=== PATIENT | female | born 1965 | race African-American/Black ===

== ENCOUNTER 2016-08-27 11:14 | Emergency (ER) | payer OTHER ==
[2016-08-27 11:32] VITALS: BP 119/67; PULSE 79; TEMP 98.3; BMI 26.2
[2016-08-27] MEDS ORDERED: CEPHALEXIN MONOHYDRATE 500 MG CAPSULE (UD) PO ONE (12:16)
[2016-08-27] MEDS ORDERED: SULFAMETHOXAZOLE/TRIMETHOPRIM 800MG/160MG D.S. TABLET PO ONE (12:16)
[2016-08-27] MEDS ORDERED: CEPHALEXIN MONOHYDRATE 500 MG CAPSULE (UD) ONE (12:22)
[2016-08-27] MEDS ORDERED: SULFAMETHOXAZOLE/TRIMETHOPRIM 800MG/160MG D.S. TABLET ONE (12:22)
--- NOTE | 2016-08-27 12:23 | PDOC ---
History of Present Illness - General Chief Complaint: Pain Stated Complaint: SWOLLEN THUMB Time Seen by Provider: 08/27/16 11:48 History Source: Patient Exam Limitations: No Limitations - History of Present Illness Initial Comments: 08/27/16 12:28 My chief complaint: Tenderness around the nailbed right thumb getting worse History of present illness: Patient is a 50-year-old female with no significant medical history here today complaining of worsening tenderness and pain around right thumb nailbed over 1 week. Patient reports that a few days ago she had some white thick discharge this area. Patient reports that she thought that condition was going to resolve on its own however swelling and tenderness of area has gotten worse and area is slightly hyperpigmented. Patient denies any nail biting or any recent manicure. Pt. is up to date with tetanus. 08/27/16 12:31 08/27/16 12:53 Timing/Duration: getting worse (for one week ) Severity: moderate Associated Symptoms: reports: other (raised tender area around nailbed laterally rt. thumb ) Past History - Past Medical History Allergies/Adverse Reactions: Allergies Allergy/AdvReac Type Severity Reaction Status Date / Time No Known Allergies Allergy Verified 08/27/16 11:29 Home Medications: Ambulatory Orders Cephalexin Monohydrate [Keflex -] 500 mg PO Q6H #27 capsule 08/27/16 Sulfamethoxazole/Trimethoprim [Bactrim DS -] 1 tab PO BID #13 tablet 08/27/16 Other medical history: NONE - Psycho/Social/Smoking Cessation Hx Anxiety: No Suicidal Ideation: No Smoking History: Never smoked Have you smoked in the past 12 months: Yes Number of Cigarettes Smoked Daily: 5 Information on smoking cessation initiated: Yes Hx Alcohol Use: No Drug/Substance Use Hx: No Substance Use Type: None Review of Systems - Review of Systems Able to Perform ROS?: Yes Constitutional: No: Symptoms Reported HEENTM: No: Symptoms Reported Respiratory: No: Symptoms reported Cardiac (ROS): No: Symptoms Reported ABD/GI: No: Symptoms Reported : No: Symptoms Reported Musculoskeletal: No: Symptoms Reported Integumentary: Yes: Other (raised tender area around rt. lateral thumb nailbed slightly hyperpigmented) Neurological: No: Symptoms reported *Physical Exam - Vital Signs Last Vital Signs Temp Pulse Resp BP Pulse Ox 98.3 F 79 18 119/67 100 08/27/16 11:30 02/27/17 11:30 08/27/16 11:30 08/27/16 11:30 08/27/16 11:30 - Physical Exam Extremity: positive: Normal Capillary Refill, Normal Range of Motion (rt. thumb dip, mcp jt ), Tender (rt,thumb around nailbed ), Swelling (rt. thumb around nailbed ) Integumentary: positive: Erythema (rt. thumb around nailbed tender ), Swelling ( rt. thumb around nailbed ) Neurologic: positive: Alert, Normal Response, Responsive Procedures - Additional Procedures Progress: 08/27/16 12:53 cleansed area with betadine and NS 0.9 % using an 18 gauge needle large amount of thick yellowish discharge Medical Decision Making - Medical Decision Making 08/27/16 12:33 Patient is a 50-year-old female with no significant medical history here today complaining of worsening tenderness and pain around right thumb nailbed over 1 week. Patient reports that a few days ago she had some white thick discharge this area. Patient reports that she thought that condition was going to resolve on its own however swelling and tenderness of area has gotten worse and area is slightly hyperpigmented. Patient denies any nail biting or any recent manicure. Pt. is up to date with tetanus. right thumb paronychium PLAN: Keflex 500 mg po now than every 6 hours for 7 days bactrim DS 1 tab po now than bid for 7 days cleansed area with betadine and NS 0.9 % using an 18 gauge needle large amount of thick yellowish discharge *DC/Admit/Observation/Transfer Diagnosis at time of Disposition: Paronychia of finger of right hand - Discharge Dispostion Disposition: HOME Condition at time of disposition: Stable - Prescriptions Prescriptions: Sulfamethoxazole/Trimethoprim [Bactrim DS -] 1 tab PO BID #13 tablet Cephalexin Monohydrate [Keflex -] 500 mg PO Q6H #27 capsule - Referrals Referrals: Keo Silver MD [Primary Care Provider] - - Patient Instructions Additional Instructions: Soak your thumb in warm salt water every 3 hours while awake today and tomorrow Return here if any increased inflammation of your thumb or swelling or any fever or any streaking of red up your thumb or arm Follow-up with your primary care provider within the next few days Patient voiced understanding of discharge instructions and all questions were answered - Post Discharge Activity Work/School Note: Back to Work
== END 2016-08-27 12:35 | disposition home or self-care (01) ==
LOC: JERFT 11:14
PROC: 0H9FXZZ Drainage of Right Hand Skin, External Approach (ICD-10-PCS; principal; 2016-08-27)
DX: L03.011 Cellulitis of right finger (principal)
CPT/HCPCS: 10160; 87070; 87205; 99281-25

== ENCOUNTER 2020-01-24 17:33 | Emergency (ER) | payer BC, OTHER ==
[2020-01-24] MEDS ORDERED: DIPHTH,PERTUSS(ACELL),TET 0.5 ML DISP.SYRIN IM ONE ×2 (17:44→17:53)
[2020-01-24 17:45] VITALS: BP 121/82; PULSE 81; TEMP 98.4; BMI 27.2
--- NOTE | 2020-01-24 17:45 | PDOC ---
Rapid Medical Evaluation Chief Complaint: Laceration Time Seen by Provider: 01/24/20 17:43 Medical Evaluation: Allergies Allergy/AdvReac Type Severity Reaction Status Date / Time No Known Allergies Allergy Verified 08/27/16 11:29 01/24/20 17:43 Pt presents with a laceration to her R 2nd digit. She cut it on a plate. Does not remember her last tetanus shot Exam: bleeding to the R 2nd digit. Dressing in place, able to flex the finger Orders: boostrix Pt to proceed to the ER for further evaluation Discharge Disposition - Diagnosis Laceration - Referrals Referrals: Keo Silver MD [Primary Care Provider] - - Patient Instructions - Post Discharge Activity
--- NOTE | 2020-01-24 18:20 | PDOC ---
History of Present Illness - General Chief Complaint: Laceration Stated Complaint: LACERATION ON FINGER Time Seen by Provider: 01/24/20 17:43 History Source: Patient Exam Limitations: No Limitations - History of Present Illness Initial Comments: 01/24/20 18:16 54-year-old female [id number] sustained laceration to right index finger 2 to 3 hours prior to arrival. Patient states a plate broke and accidentally lacerated her index finger. Patient called EMS who cleaned the area however declined presenting to the ER via EMS. son drove her to the hospital. Denies any other injuries or complaints. Unknown tetanus status. ROS: As above PE: GENERAL: well-appearing, NAD HEAD: NCAT EYES: Pupils equal, round and reactive to light, sclera anicteric, conjunctiva clear ENT: pharynx: no erythema, no exudate, uvula midline NECK: supple CHEST: nontender RESP: clear, no w/r/r CARDIO: rrr, no m/g/r ABD: +BS, soft, nontender, non distended BACK: no midline spinal ttp, no CVAT EXTREMITIES: Normal range of motion, 5/5 strength and sensation, approximately 3.5 cm superficial wound to dorsum of right index finger between MCP and PIP, no active bleeding noted NEUROLOGICAL: Normal speech, normal gait SKIN: Warm, Dry Is this a multiple visit Asthma Patient?: No Past History - Medical History Allergies/Adverse Reactions: Allergies Allergy/AdvReac Type Severity Reaction Status Date / Time No Known Allergies Allergy Verified 01/24/20 17:45 Home Medications: Ambulatory Orders Cephalexin Monohydrate [Keflex -] 500 mg PO Q6H #27 capsule 08/27/16 Sulfamethoxazole/Trimethoprim [Bactrim DS -] 1 tab PO BID #13 tablet 08/27/16 COPD: No - Immunization History Td Vaccination: No TDAP Vaccination: No Immunization Up to Date: No - Psycho-Social/Smoking History Smoking History: Never smoked Have you smoked in the past 12 months: Yes Number of Cigarettes Smoked Daily: 5 - Substance Abuse Hx (Audit-C & DAST Scrn) How often the patient has a drink containing alcohol: Never Score: In Men: 4 or > Positive; In Women: 3 or > Positive: 0 Screen Result (Pos requires Nsg. Audit-10AR): Negative *Physical Exam - Vital Signs Last Vital Signs Temp Pulse Resp BP Pulse Ox 98.4 F 81 18 121/82 98 01/24/20 17:42 01/24/20 17:42 01/24/20 17:42 01/24/20 17:42 01/24/20 17:42 ED Treatment Course - Medications Given in the ED: ED Medications Discontinued Medications Generic Name Dose Route Start Last Admin Trade Name Suleiman PRN Reason Stop Dose Admin Diphtheria/Tetanus/Acell Pertussis 0.5 ml 01/24/20 17:44 01/24/20 17:53 Boostrix - IM 01/24/20 17:45 0.5 ml .ONCE ONE Administration Medical Decision Making - Medical Decision Making 01/24/20 18:20 54-year-old female [id number] sustained laceration to right index finger 2 to 3 hours prior to arrival. Patient states a plate broke and accidentally lacerated her index finger. Patient called EMS who cleaned the area however declined presenting to the ER via EMS. son drove her to the hospital. Denies any other injuries or complaints. Unknown tetanus status. Tetanus Laceration repaired by resident Jed oRsa Return to ED for suture removal in 7 days Return to ED if you develop fever, chills, swelling or drainage from wound Discharge - Discharge Information Problems reviewed: Yes Clinical Impression/Diagnosis: Laceration Condition: Stable Disposition: HOME - Admission No - Follow up/Referral Referrals: Keo Silver MD [Primary Care Provider] - - Patient Discharge Instructions Additional Instructions: Keep area clean and dry, apply bacitracin to area twice a day Return to the ED in 7 days for suture removal Return to ED sooner if you develop fever, chills, drainage from wound, swelling or any concerning symptom - Post Discharge Activity
--- NOTE | 2020-01-24 19:12 | PDOC ---
History of Present Illness - General Chief Complaint: Laceration Stated Complaint: LACERATION ON FINGER Time Seen by Provider: 01/24/20 17:43 Past History - Medical History Allergies/Adverse Reactions: Allergies Allergy/AdvReac Type Severity Reaction Status Date / Time No Known Allergies Allergy Verified 01/24/20 17:45 Home Medications: Ambulatory Orders Cephalexin Monohydrate [Keflex -] 500 mg PO Q6H #27 capsule 08/27/16 Sulfamethoxazole/Trimethoprim [Bactrim DS -] 1 tab PO BID #13 tablet 08/27/16 COPD: No - Immunization History Td Vaccination: No TDAP Vaccination: No Immunization Up to Date: No - Psycho-Social/Smoking History Smoking History: Never smoked Have you smoked in the past 12 months: Yes Number of Cigarettes Smoked Daily: 5 - Substance Abuse Hx (Audit-C & DAST Scrn) How often the patient has a drink containing alcohol: Never Score: In Men: 4 or > Positive; In Women: 3 or > Positive: 0 Screen Result (Pos requires Nsg. Audit-10AR): Negative *Physical Exam - Vital Signs Last Vital Signs Temp Pulse Resp BP Pulse Ox 98.4 F 81 18 121/82 98 01/24/20 17:42 01/24/20 17:42 01/24/20 17:42 01/24/20 17:42 01/24/20 17:42 Procedures - Laceration/Wound Repair Right Finger 2nd digit Wound Length: 2.6 to 5.0 cm Wound Explored: clean Wound's Depth, Shape: superficial Irrigated w/ Saline: Yes Betadine Prep: No Anesthesia: 1% Lidocaine Amount of Anesthetic (ccs): 4 (digital block) Wound Repaired With: Sutures Suture Size/Type: 4:0, nylon Number of Sutures: 8 Layer Closure: No Sterile Dressing Applied: Yes Splint Applied: No Sling Applied: No ED Treatment Course - Medications Given in the ED: ED Medications Discontinued Medications Generic Name Dose Route Start Last Admin Trade Name Freq PRN Reason Stop Dose Admin Diphtheria/Tetanus/Acell Pertussis 0.5 ml 01/24/20 17:44 01/24/20 17:53 Boostrix - IM 01/24/20 17:45 0.5 ml .ONCE ONE Administration Discharge - Discharge Information Problems reviewed: Yes Clinical Impression/Diagnosis: Laceration Condition: Stable Disposition: HOME - Follow up/Referral Referrals: Keo Silver MD [Primary Care Provider] - - Patient Discharge Instructions Additional Instructions: Keep area clean and dry, apply bacitracin to area twice a day Return to the ED in 7 days for suture removal Return to ED sooner if you develop fever, chills, drainage from wound, swelling or any concerning symptom - Post Discharge Activity
== END 2020-01-24 19:03 | disposition home or self-care (01) ==
LOC: JERFT 17:33
PROC: 3E0234Z Introduction of Serum, Toxoid and Vaccine into Muscle, Percutaneous Approach (ICD-10-PCS; principal; 2020-01-24)
PROC: 0HQFXZZ Repair Right Hand Skin, External Approach (ICD-10-PCS; 2020-01-24)
DX: S61.210A Laceration without foreign body of right index finger without damage to nail, initial encounter (principal)
CPT/HCPCS: 90715; 99284-25

== ENCOUNTER 2020-02-04 16:51 | Emergency (ER) | payer BC ==
[2020-02-04 17:01] VITALS: BP 147/89; PULSE 88; TEMP 97.9; BMI 27.2
--- NOTE | 2020-02-04 17:20 | PDOC ---
History of Present Illness - General Chief Complaint: Suture/Staple Removal(Here) Stated Complaint: SUTURE REMOVAL Time Seen by Provider: 02/04/20 16:55 History Source: Patient Exam Limitations: No Limitations - History of Present Illness Initial Comments: 02/04/20 17:21 Patient is a 54-year-old female who presents to the ED for suture removal of the right index finger. She had sustained a laceration and repair 11 days ago. She states she was supposed to come in at 1 week but missed the day and came in today. She denies any fevers or chills she denies any drainage from the wounds. Past History - Medical History Allergies/Adverse Reactions: Allergies Allergy/AdvReac Type Severity Reaction Status Date / Time No Known Allergies Allergy Verified 01/24/20 17:45 Home Medications: Ambulatory Orders Cephalexin Monohydrate [Keflex -] 500 mg PO Q6H #27 capsule 08/27/16 Sulfamethoxazole/Trimethoprim [Bactrim DS -] 1 tab PO BID #13 tablet 08/27/16 COPD: No - Reproductive History Is Patient Now?: No - Immunization History Td Vaccination: No TDAP Vaccination: No Immunization Up to Date: No - Psycho-Social/Smoking History Smoking History: Never smoked Have you smoked in the past 12 months: No Number of Cigarettes Smoked Daily: 5 Information on smoking cessation initiated: No - Substance Abuse Hx (Audit-C & DAST Scrn) How often the patient has a drink containing alcohol: Never Score: In Men: 4 or > Positive; In Women: 3 or > Positive: 0 Screen Result (Pos requires Nsg. Audit-10AR): Negative In the last yr the pt used illegal drug/Rx for NonMed reason: No Score: Yes response is considered Positive: 0 Screen Result (Positive result requires Nsg. DAST-10): Negative Review of Systems - Review of Systems Comments:: 02/04/20 17:23 - Review of Systems Able to Perform ROS?: Yes Constitutional: No: Fever, Chills, Loss of Appetite, Night Sweats, Weakness HEENTM: No: Eye Pain, Vision changes, Ear Pain, Throat Pain, Throat Swelling, Mouth Pain, Difficulty Swallowing Respiratory: No: Cough, Shortness of Breath, Wheezing, Sputum Production Cardiac (ROS): No: Chest Pain, Chest Tightness, Palpitations, Irregular Heart Beat, Edema ABD/GI: No: Nausea, Vomiting, Abdominal Pain, Diarrhea : No Dysuria, No Hematuria, No Frequency, No Urgency Musculoskeletal: No: Muscle Pain, Back Pain, Joint Pain, Muscle Weakness, Neck Pain Integumentary: No: Lesions, Rash; suture removal right index finger Neurological: No: Headache, Numbness, Tingling, Weakness, Speech Difficulties *Physical Exam - Vital Signs Last Vital Signs Temp Pulse Resp BP Pulse Ox 97.9 F 88 17 147/89 100 02/04/20 16:55 02/04/20 16:55 02/04/20 16:55 02/04/20 16:55 02/04/20 16:55 - Physical Exam 02/04/20 17:23 - Physical Exam General Appearance: Nourished, Appropriately Dressed, No Distress Neck: Supple, No Lymphadenopathy (R), No Lymphadenopathy (L), No Rigidity, No Decreased range of motion Respiratory/Chest: Lungs Clear, Normal Breath Sounds. No Respiratory Distress, No Accessory Muscle Use Cardiovascular: Regular Rhythm, Regular Rate, S1, S2 Musculoskeletal: Normal Inspection. No Decreased Range of Motion Extremity: Normal Capillary Refill, Normal Inspection Integumentary: Normal Color, Dry. No Rash; [address] to the right index finger dorsal aspect extending to the medial aspect of the proximal phalanx. Wound appears to be well-healing. Moderate swelling appreciated. No sign of infection. No drainage. Neurologic: utility bill collection clerk II-XII NML intact, Fully Oriented, Alert, Normal Mood/Affect, Normal Response Medical Decision Making - Medical Decision Making 02/04/20 17:18 Assessment: Patient is a 54-year-old female who presents to the ED for suture removal to her right index finger after laceration that she sustained 11 days ago. Plan: -8 sutures removed from the right index finger and Steri-Strips placed without complication -Wound care instructions given -Patient stable for discharge Discharge - Discharge Information Problems reviewed: Yes Clinical Impression/Diagnosis: Visit for suture removal Condition: Stable Disposition: HOME - Follow up/Referral Referrals: Keo Silver MD [Primary Care Provider] - 2 Days - Patient Discharge Instructions Patient Printed Discharge Instructions: DI for Suture Removal Additional Instructions: Keep the wound clean and dry. You can wash the wound with warm water and soap but do not soak the wound for at least another 1 to 2 weeks. Do not remove the Steri-Strips, allow them to fall off on their own. Follow-up with your primary care doctor for repeat evaluation and wound check. - Post Discharge Activity
== END 2020-02-04 17:22 | disposition home or self-care (01) ==
LOC: JERFT 16:51
DX: Z48.02 Encounter for removal of sutures (principal)
CPT/HCPCS: 99281-25

== ENCOUNTER 2022-06-28 07:27 | Emergency (ER) | payer BC, OTHER ==
[2022-06-28 07:42] VITALS: BP 125/81; PULSE 90; RESP 18; TEMP 98; BMI 28.3
[2022-06-28] MEDS ORDERED: ACETAMINOPHEN 1000 MG/100 ML BAG IVPB ONE (08:14)
[2022-06-28] MEDS ORDERED: SODIUM CHLORIDE 1,000 ML IV STA (08:14)
[2022-06-28] MEDS ORDERED: ACETAMINOPHEN INJECTION 100 ML IVPB ONE (08:26)
[2022-06-28 08:44] LABS: BASO % 0.5 % (0-2.0); EOS % 0.9 % (0-4.5); HEMATOCRIT 38.9 % (32.4-45.2); HEMOGLOBIN 12.7 GM/dL (10.7-15.3); LYMPH % 23.5 % (8-40); MCH 30.1 pg (25.7-33.7); MCHC 32.6 g/dl (32.0-36.0); MEAN CELL VOLUME 92.3 fl (80-96); MEAN PLT VOLUME 8.7 fl (7.5-11.1); MONO % 4.3 % (3.8-10.2); NEUT % 70.8 % (42.8-82.8); PLATELET COUNT 206 10^3/uL (134-434); RBC 4.22 M/mm3 (3.60-5.2); RDW 13.7 % (11.6-15.6)
[2022-06-28 09:12] LABS: ALBUMIN 3.6 g/dl (3.4-5.0); BLOOD UREA NITROGEN 11.6 mg/dL (7-18); CALCIUM 9.2 mg/dL (8.5-10.1); MAGNESIUM 2.3 mg/dL (1.8-2.4)
[2022-06-28 09:14] LABS: CREATININE 1.1 mg/dL (0.55-1.3)
[2022-06-28 09:15] LABS: ACTIVATED PTT 32.7 SECONDS (25.2-36.5); INR 1.15 (0.83-1.09); PROTHROMBIN TIME (PATIENT) 13.3 SEC (9.7-13.0)
[2022-06-28 09:16] LABS: BILIRUBIN,TOTAL 0.9 mg/dL (0.2-1); TOT PROT 7.4 g/dl (6.4-8.2)
[2022-06-28 09:38] LABS: URINE APPEARANCE CLEAR; URINE BILIRUBIN NEGATIVE (NEGATIVE); URINE COLOR YELLOW; URINE GLUCOSE (UA) NEGATIVE (NEGATIVE); URINE KETONE NEGATIVE (NEGATIVE); URINE LEUK ESTERASE NEGATIVE (NEGATIVE); URINE NITRITE NEGATIVE (NEGATIVE); URINE PROTEIN NEGATIVE (NEGATIVE); URINE UROBILINOGEN 0.2 mg/dL (0.2-1.0)
[2022-06-28 09:49] LABS: HCG,QUALITATIVE URINE Negative
== END 2022-06-28 14:01 | disposition home or self-care (01) ==
LOC: JER 07:27 → JERFT 07:27
PROC: 3E033GC Introduction of Other Therapeutic Substance into Peripheral Vein, Percutaneous Approach (ICD-10-PCS; principal; 2022-06-28)
DX: D25.9 Leiomyoma of uterus, unspecified (principal)
CPT/HCPCS: 36415; 74177-TC; 76705-TC; 80053; 81003; 82150; 83690; 83735; 84484; 84703; 85025; 85610; 85730; 87086; 93005; 93010; 99285-25; Q9967

== ENCOUNTER 2022-08-27 04:23 | Inpatient (IN) | payer OTHER ==
[2022-08-24 09:29] VITALS: BMI 27.3
[2022-08-27] MEDS ORDERED: ceFAZolin SODIUM 1 GM VIAL ONE ×2 (06:48→07:08)
[2022-08-27] MEDS ORDERED: PHENAZOPYRIDINE HCL 100 MG TABLET (FP) ONE (06:48)
[2022-08-27] MEDS ORDERED: GABAPENTIN 300 MG CAPSULE ONE (06:48)
[2022-08-27] MEDS ORDERED: PHENAZOPYRIDINE HCL 100 MG TABLET (FP) PO ONE ×2 (06:50→11:07)
[2022-08-27] MEDS ORDERED: GABAPENTIN 300 MG CAPSULE PO ONE ×2 (06:50→11:07)
[2022-08-27] MEDS ORDERED: MIDAZOLAM HCL 2 MG/2 ML SINGLE DOSE VIAL ONE (07:08)
[2022-08-27] MEDS ORDERED: ONDANSETRON 4 MG/2 ML VIAL ONE (07:08)
[2022-08-27] MEDS ORDERED: PROPOFOL 20 ML ONE (07:08)
[2022-08-27] MEDS ORDERED: DEXAMETHASONE SOD PHOSPHATE 4 MG/1 ML VIAL ONE (07:08)
[2022-08-27] MEDS ORDERED: LIDOCAINE HCL/PF 2% SDV 5ML VIAL ONE (07:08)
[2022-08-27] MEDS ORDERED: HYDROmorphone HCl 2 MG/ML VIAL ONE (07:09)
[2022-08-27] MEDS ORDERED: BUPIVACAINE HCL/PF 0.5% (5MG/ML) 10 ML VIAL ONE (07:11)
[2022-08-27] MEDS ORDERED: BUPIVACAINE LIPOSOME/PF (EXPAREL) 266 MG/20 ML VIAL ONE (07:12)
[2022-08-27] MEDS ORDERED: ROCURONIUM BROMIDE 50 MG/5 ML SYRINGE ONE (07:59)
[2022-08-27] MEDS ORDERED: TRANEXAMIC ACID 1000 MG/10 ML VIAL ONE (08:18)
[2022-08-27] MEDS ORDERED: ceFAZolin SODIUM 1 GM VIAL IVPB ONE (08:26)
[2022-08-27] MEDS ORDERED: KETOROLAC TROMETHAMINE 30 MG/1 ML VIAL ONE (09:40)
[2022-08-27] MEDS ORDERED: NEOSTIGMINE METHYLSULFATE 0.5 MG/1 ML - 10 ML MDV ONE (09:40)
[2022-08-27] MEDS ORDERED: GLYCOPYRROLATE 0.2 MG/1 ML VIAL ONE (09:40)
[2022-08-27] MEDS ORDERED: oxyCODONE HCL 5 MG TABLET PO PRN ×2 (10:34)
[2022-08-27] MEDS ORDERED: DOCUSATE SODIUM 100 MG CAPSULE (FP) PO PRN (10:34)
[2022-08-27] MEDS ORDERED: BISACODYL 5 MG TABLET.DR (FP) PO PRN (10:34)
[2022-08-27] MEDS ORDERED: SIMETHICONE 80 MG TAB.CHEW (FP) PO PRN (10:34)
[2022-08-27] MEDS ORDERED: ONDANSETRON 4 MG/2 ML VIAL IVPUSH PRN (10:34)
[2022-08-27] MEDS ORDERED: LACTATED RINGERS SOLUTION 1,000 ML IV SCH (11:00)
[2022-08-27] MEDS ORDERED: CEFAZOLIN 2 GM in DEXTROSE 5%-WATER - 100 ML IVPB ONE (11:07)
[2022-08-27] MEDS ORDERED: TRANEXAMIC ACID 1000 MG/10 ML VIAL IVPUSH ONE (11:07)
[2022-08-27] MEDS ORDERED: ACETAMINOPHEN 1000 MG/100 ML BAG IVPB ONE (11:07)
[2022-08-27] MEDS: SODIUM CHLORIDE 1,000 ML IV SCH (14:27)
[2022-08-27] MEDS: ACETAMINOPHEN 325 MG TABLET (FP) PO SCH (17:10)
[2022-08-27] MEDS: CEFOXITIN SODIUM 2 GM in DEXTROSE 5%-WATER - 100 ML IVPB SCH (17:15)
[2022-08-27] MEDS: IBUPROFEN 800 MG/8 ML IJ IVPB SCH (18:30)
[2022-08-27] MEDS: DOXYCYCLINE INJECTION 100 MG in DEXTROSE 5%-WATER 100 ML IVPB SCH (21:17)
[2022-08-28] MEDS: ACETAMINOPHEN 325 MG TABLET (FP) PO SCH ×2 (01:00→22:46)
[2022-08-28] MEDS: CEFOXITIN SODIUM 2 GM in DEXTROSE 5%-WATER - 100 ML IVPB SCH ×3 (01:00→17:23)
[2022-08-28] MEDS: IBUPROFEN 800 MG/8 ML IJ IVPB SCH ×2 (02:30→11:04)
[2022-08-28] MEDS: ACETAMINOPHEN 500 MG TABLET (FP) PO SCH ×3 (06:24→17:17)
[2022-08-28] MEDS ORDERED: DOXYCYCLINE HYCLATE 100 MG VIAL ONE (09:01)
[2022-08-28 09:05] LABS: HEMATOCRIT 21.9 % (32.4-45.2); HEMOGLOBIN 7.5 GM/dL (10.7-15.3); MCH 29.3 pg (25.7-33.7); MCHC 34.3 g/dl (32.0-36.0); MEAN CELL VOLUME 85.4 fl (80-96); MEAN PLT VOLUME 8.1 fl (7.5-11.1); PLATELET COUNT 267 10^3/uL (134-434); RBC 2.56 M/mm3 (3.60-5.2); RDW 13.7 % (11.6-15.6); WHITE BLOOD COUNT 10.3 K/mm3 (4.0-10.0)
[2022-08-28] MEDS: DOXYCYCLINE INJECTION 100 MG in DEXTROSE 5%-WATER 100 ML IVPB SCH (09:14)
[2022-08-28] MEDS: ENOXAPARIN NA (PORCINE) 40 MG/0.4 ML DISP.SYRIN SQ SCH (09:14)
[2022-08-28 09:20] LABS: CALCIUM 8.4 mg/dL (8.5-10.1)
[2022-08-28 09:21] LABS: BLOOD UREA NITROGEN 36.6 mg/dL (7-18)
[2022-08-28 09:24] LABS: CREATININE 1.8 mg/dL (0.55-1.3)
[2022-08-28 14:16] LABS: BASO % 0.6 % (0-2.0); EOS % 1.3 % (0-4.5); HEMATOCRIT 22.1 % (32.4-45.2); HEMOGLOBIN 7.5 GM/dL (10.7-15.3); LYMPH % 19.9 % (8-40); MCH 29.7 pg (25.7-33.7); MCHC 33.8 g/dl (32.0-36.0); MEAN CELL VOLUME 87.7 fl (80-96); MEAN PLT VOLUME 8.3 fl (7.5-11.1); MONO % 6.6 % (3.8-10.2); NEUT % 71.6 % (42.8-82.8); PLATELET COUNT 279 10^3/uL (134-434); RBC 2.52 M/mm3 (3.60-5.2); RDW 13.5 % (11.6-15.6); WHITE BLOOD COUNT 9.9 K/mm3 (4.0-10.0)
[2022-08-28 14:40] LABS: BLOOD UREA NITROGEN 38.9 mg/dL (7-18); CALCIUM 8.2 mg/dL (8.5-10.1)
[2022-08-28 14:44] LABS: CREATININE 2.1 mg/dL (0.55-1.3)
[2022-08-28] MEDS ORDERED: SODIUM CHLORIDE 1,000 ML IV STA (16:31)
[2022-08-28] MEDS ORDERED: IRON SUCROSE INJECTION 300 MG in SODIUM CHLORIDE 235 ML IVPB ONE (16:39)
[2022-08-28] MEDS: SODIUM CHLORIDE 1,000 ML IV SCH (17:16)
[2022-08-29] MEDS: ACETAMINOPHEN 500 MG TABLET (FP) PO SCH ×3 (01:28→12:21)
[2022-08-29] MEDS: CEFOXITIN SODIUM 2 GM in DEXTROSE 5%-WATER - 100 ML IVPB SCH ×2 (01:57→09:17)
[2022-08-29] MEDS: ENOXAPARIN NA (PORCINE) 40 MG/0.4 ML DISP.SYRIN SQ SCH (09:17)
[2022-08-29 10:08] LABS: BASO % 0.2 % (0-2.0); EOS % 1.3 % (0-4.5); HEMATOCRIT 21.6 % (32.4-45.2); HEMOGLOBIN 7.3 GM/dL (10.7-15.3); LYMPH % 13.8 % (8-40); MCH 29.7 pg (25.7-33.7); MCHC 33.9 g/dl (32.0-36.0); MEAN CELL VOLUME 87.5 fl (80-96); MEAN PLT VOLUME 8.3 fl (7.5-11.1); MONO % 6.5 % (3.8-10.2); NEUT % 78.2 % (42.8-82.8); PLATELET COUNT 284 10^3/uL (134-434); RBC 2.47 M/mm3 (3.60-5.2); RDW 13.5 % (11.6-15.6); WHITE BLOOD COUNT 8.6 K/mm3 (4.0-10.0)
[2022-08-29 10:33] LABS: CALCIUM 8.2 mg/dL (8.5-10.1)
[2022-08-29 10:37] LABS: CREATININE 1.1 mg/dL (0.55-1.3)
[2022-08-29] MEDS ORDERED: LACTATED RINGERS SOLUTION 1,000 ML/1,000 ML INFUS.BAG IV SCH (11:30)
[2022-08-29 15:16] VITALS: BP 112/79; PULSE 88; RESP 18; TEMP 98.2
== END 2022-08-29 15:39 | disposition home or self-care (01) | DRG 742 ==
LOC: JASU-SURG 04:23 → JASUSAT 04:23 → J2C 06:33 → UNDOADMIN 06:33 → J6S 13:58 → JASUSAT 08-28 15:23 → J6S 08-28 15:24
PROVIDERS: ADMIT Obstetrics & Gynecology; ATTEND Obstetrics & Gynecology
PROC: 0UT94ZZ Resection of Uterus, Percutaneous Endoscopic Approach (ICD-10-PCS; 2022-08-27)
PROC: 0W9G4ZZ Drainage of Peritoneal Cavity, Percutaneous Endoscopic Approach (ICD-10-PCS; 2022-08-27)
PROC: 8E0W4CZ Robotic Assisted Procedure of Trunk Region, Percutaneous Endoscopic Approach (ICD-10-PCS; 2022-08-27)
PROC: 0DNW4ZZ Release Peritoneum, Percutaneous Endoscopic Approach (ICD-10-PCS; principal; 2022-08-27 07:30)
PROC: 0UT74ZZ Resection of Bilateral Fallopian Tubes, Percutaneous Endoscopic Approach (ICD-10-PCS; 2022-08-27 07:30)
DX: N73.3 Female acute pelvic peritonitis (principal); D62 Acute posthemorrhagic anemia; N17.9 Acute kidney failure, unspecified; N80.03 Adenomyosis of the uterus; D25.9 Leiomyoma of uterus, unspecified; R10.2 Pelvic and perineal pain; N73.9 Female pelvic inflammatory disease, unspecified; N73.6 Female pelvic peritoneal adhesions (postinfective); F17.210 Nicotine dependence, cigarettes, uncomplicated
CPT/HCPCS: 36415; 80048; 85025; 85027; 86850; 86900; 86901; 87070; 87075; 87076; 87186; 87205; 88302-TC; 88305-TC; 88307-TC; 88311-TC; 94010; 94760; J1756

== ENCOUNTER 2022-09-04 14:40 | Inpatient (IN) | payer OTHER ==
[2022-09-04] MEDS ORDERED: ACETAMINOPHEN 1000 MG/100 ML BAG IVPB ONE (15:26)
[2022-09-04] MEDS ORDERED: SODIUM CHLORIDE 0.9% 500 ML INFUS.BAG IV ONE (15:26)
[2022-09-04] MEDS ORDERED: ACETAMINOPHEN INJECTION 100 ML IVPB ONE ×2 (15:51→17:47)
[2022-09-04 16:24] LABS: VENOUS BASE EXCESS 7.2 mmol/L (-2-2); VENOUS O2 SATURATION 71.2 % (70-80); VENOUS PCO2 35.1 mmHg (38-52); VENOUS PH 7.551 (7.310-7.410)
[2022-09-04 16:26] LABS: BASO % 0.4 % (0-2.0); EOS % 0.1 % (0-4.5); HEMATOCRIT 20.1 % (32.4-45.2); LYMPH % 6.5 % (8-40); MCH 28.3 pg (25.7-33.7); MCHC 32.8 g/dl (32.0-36.0); MEAN CELL VOLUME 86.3 fl (80-96); MONO % 7.5 % (3.8-10.2); NEUT % 85.5 % (42.8-82.8); PLATELET COUNT 401 10^3/uL (134-434); RBC 2.34 M/mm3 (3.60-5.2); RDW 14.2 % (11.6-15.6); WHITE BLOOD COUNT 12.9 K/mm3 (4.0-10.0)
[2022-09-04 16:27] LABS: INR 1.72 (0.83-1.09); PROTHROMBIN TIME (PATIENT) 19.8 SEC (9.7-13.0)
[2022-09-04 16:30] LABS: ACTIVATED PTT 28.5 SECONDS (25.2-36.5)
[2022-09-04 16:40] LABS: HEMOGLOBIN 6.6 GM/dL (10.7-15.3)
[2022-09-04] MEDS ORDERED: PROPOFOL 20 ML ONE (17:09)
[2022-09-04] MEDS ORDERED: ROCURONIUM BROMIDE 50 MG/5 ML SYRINGE ONE ×2 (17:09→19:51)
[2022-09-04] MEDS ORDERED: MIDAZOLAM HCL 2 MG/2 ML SINGLE DOSE VIAL ONE ×2 (17:09→18:08)
[2022-09-04] MEDS ORDERED: oxyCODONE HCL 5 MG TABLET PO PRN (17:46)
[2022-09-04] MEDS ORDERED: IBUPROFEN 400 MG TABLET (FP) PO PRN (17:46)
[2022-09-04] MEDS ORDERED: CEFOXITIN SODIUM 1 GM IVPB ONE ×2 (17:47→18:03)
[2022-09-04] MEDS ORDERED: cefOXitin SODIUM 1 GM VIAL (RESTRICTED TO ID) IVPB ONE (18:12)
[2022-09-04 18:18] LABS: CHLORIDE 100 mmol/L (98-107); SODIUM 141 mmol/L (136-145)
[2022-09-04 18:20] LABS: ALBUMIN 2.6 g/dl (3.4-5.0); BLOOD UREA NITROGEN 11.8 mg/dL (7-18); CALCIUM 8.1 mg/dL (8.5-10.1); CO2 32 mmol/L (21-32); GLUCOSE,RANDOM 94 mg/dL (74-106)
[2022-09-04 18:24] LABS: CREATININE 0.9 mg/dL (0.55-1.3); SGOT/AST 22 U/L (15-37)
[2022-09-04] MEDS ORDERED: HYDROmorphone HCl 2 MG/ML VIAL ONE (18:24)
[2022-09-04 18:25] LABS: BILIRUBIN,TOTAL 0.7 mg/dL (0.2-1)
[2022-09-04 18:27] LABS: ALK PHOS 100 U/L (45-117)
[2022-09-04 18:35] LABS: SGPT/ALT 23 U/L (13-61)
[2022-09-04 18:36] LABS: ANION GAP 10 MMOL/L (8-16)
[2022-09-04] MEDS ORDERED: NEOSTIGMINE METHYLSULFATE 0.5 MG/1 ML - 10 ML MDV ONE (20:31)
[2022-09-04] MEDS ORDERED: ONDANSETRON 4 MG/2 ML VIAL IVPUSH PRN (21:01)
[2022-09-04] MEDS ORDERED: PROMETHAZINE HCL 25 MG/1 ML VIAL IVPB PRN (21:02)
[2022-09-04] MEDS ORDERED: DEXAMETHASONE SOD PHOSPHATE 4 MG/1 ML VIAL IVPUSH PRN (21:02)
[2022-09-04] MEDS ORDERED: HYDROmorphone *PCA* 10MG/50ML DISP.SYRIN ONE (21:09)
[2022-09-04] MEDS ORDERED: HYDROmorphone *PCA* 10MG/50ML DISP.SYRIN PCA SCH (21:15)
[2022-09-04 21:33] LABS: HEMATOCRIT 29.4 % (32.4-45.2); HEMOGLOBIN 9.7 GM/dL (10.7-15.3); MCHC 32.9 g/dl (32.0-36.0); MEAN CELL VOLUME 85.3 fl (80-96); MEAN PLT VOLUME 6.8 fl (7.5-11.1); PLATELET COUNT 344 10^3/uL (134-434); RBC 3.45 M/mm3 (3.60-5.2); RDW 14.4 % (11.6-15.6); WHITE BLOOD COUNT 7.6 K/mm3 (4.0-10.0)
[2022-09-04] MEDS: PIPERACILLIN/TAZOB 3.375 GM 3.375 GM in DEXTROSE 5%-WATER - 50 ML IVPB SCH (21:40)
[2022-09-04] MEDS: KCL 10 MEQ IVPB 10 MEQ/100 ML INFUS.BAG IVPB SCH (22:00)
[2022-09-04 22:24] LABS: CALCIUM 7.1 mg/dL (8.5-10.1); CHLORIDE 107 mmol/L (98-107); SODIUM 141 mmol/L (136-145)
[2022-09-04 22:26] LABS: BLOOD UREA NITROGEN 11.8 mg/dL (7-18); CO2 28 mmol/L (21-32); GLUCOSE,RANDOM 114 mg/dL (74-106)
[2022-09-04 22:34] LABS: ANION GAP 6 MMOL/L (8-16)
[2022-09-04] MEDS ORDERED: BISACODYL 5 MG TABLET.DR (FP) PO ONE (22:53)
[2022-09-05] MEDS: KCL 10 MEQ IVPB 10 MEQ/100 ML INFUS.BAG IVPB SCH ×2 (00:24→01:24)
[2022-09-05] MEDS: PIPERACILLIN/TAZOB 3.375 GM 3.375 GM in DEXTROSE 5%-WATER - 50 ML IVPB SCH ×4 (05:22→22:15)
[2022-09-05 08:24] LABS: HEMATOCRIT 26.7 % (32.4-45.2); HEMOGLOBIN 8.9 GM/dL (10.7-15.3); MCH 28.1 pg (25.7-33.7); MCHC 33.5 g/dl (32.0-36.0); MEAN CELL VOLUME 83.9 fl (80-96); MEAN PLT VOLUME 7.1 fl (7.5-11.1); PLATELET COUNT 340 10^3/uL (134-434); RBC 3.19 M/mm3 (3.60-5.2); RDW 15.3 % (11.6-15.6); WHITE BLOOD COUNT 14.2 K/mm3 (4.0-10.0)
[2022-09-05 09:18] LABS: CALCIUM 7.6 mg/dL (8.5-10.1)
[2022-09-05 09:19] LABS: BLOOD UREA NITROGEN 11.9 mg/dL (7-18); MAGNESIUM 1.9 mg/dL (1.8-2.4)
[2022-09-05 09:21] LABS: CREATININE 0.8 mg/dL (0.55-1.3)
[2022-09-05 09:22] LABS: PHOSPHOROUS 3.3 mg/dL (2.5-4.9)
[2022-09-05 10:31] LABS: ANISOCYTOSIS 0; HELMET CELLS 0; HOWELL-JOLLY BODIES 0; MACROCYTOSIS 0; OVALOCYTE 0; ROULEAU 0; SICKELED CELLS 0; TARGET CELLS 0; TEAR DROP CELLS 0; TOXIC GRANULATION 0
[2022-09-05] MEDS: LACTATED RINGERS SOLUTION 1,000 ML IV SCH (13:15)
[2022-09-05 15:02] VITALS: BMI 32.6
[2022-09-05] MEDS ORDERED: MEPERIDINE HCL 50 MG/ML VIAL IVPUSH PRN (18:22)
[2022-09-05 20:17] LABS: EPI CELLS 19 /uL (0-25.1); HYALINE CASTS 1 /uL (0-3.1); URINE APPEARANCE CLEAR; URINE BACTERIA 5 /uL (0-1359); URINE BILIRUBIN NEGATIVE (NEGATIVE); URINE COLOR YELLOW; URINE GLUCOSE (UA) NEGATIVE (NEGATIVE); URINE KETONE 1+ (NEGATIVE); URINE LEUK ESTERASE NEGATIVE (NEGATIVE); URINE NITRITE NEGATIVE (NEGATIVE); URINE PROTEIN 1+ (NEGATIVE); URINE RBC 61 /uL (0-23.9); URINE UROBILINOGEN 0.2 mg/dL (0.2-1.0); URINE WBC 12 /uL (0-25.8)
[2022-09-05] MEDS: ACETAMINOPHEN 1000 MG/100 ML BAG IVPB PRN (21:52)
[2022-09-06] MEDS: ACETAMINOPHEN 1000 MG/100 ML BAG IVPB PRN ×2 (04:10→10:21)
[2022-09-06] MEDS: LACTATED RINGERS SOLUTION 1,000 ML IV SCH ×2 (04:11→21:10)
[2022-09-06] MEDS: PIPERACILLIN/TAZOB 3.375 GM 3.375 GM in DEXTROSE 5%-WATER - 50 ML IVPB SCH ×3 (06:21→21:00)
[2022-09-06 08:34] LABS: BASO % 0.2 % (0-2.0); EOS % 0.1 % (0-4.5); HEMATOCRIT 27.4 % (32.4-45.2); HEMOGLOBIN 9.3 GM/dL (10.7-15.3); LYMPH % 8.3 % (8-40); MEAN CELL VOLUME 85.5 fl (80-96); MEAN PLT VOLUME 7.2 fl (7.5-11.1); NEUT % 86.4 % (42.8-82.8); PLATELET COUNT 424 10^3/uL (134-434); WHITE BLOOD COUNT 16.1 K/mm3 (4.0-10.0)
[2022-09-06 08:48] LABS: CHLORIDE 105 mmol/L (98-107); SODIUM 143 mmol/L (136-145)
[2022-09-06 08:52] LABS: BLOOD UREA NITROGEN 11.1 mg/dL (7-18); CALCIUM 7.9 mg/dL (8.5-10.1); CO2 29 mmol/L (21-32); GLUCOSE,RANDOM 79 mg/dL (74-106)
[2022-09-06 08:55] LABS: CREATININE 0.7 mg/dL (0.55-1.3)
[2022-09-06 08:59] LABS: ANION GAP 9 MMOL/L (8-16)
[2022-09-06] MEDS ORDERED: POTASSIUM CHLORIDE 20 MEQ PREMIX IVPB 100 ML IVPB ONE (10:00)
[2022-09-06] MEDS: KCL 10 MEQ IVPB 10 MEQ/100 ML INFUS.BAG IVPB SCH ×3 (11:00→23:12)
[2022-09-06] MEDS ORDERED: IBUPROFEN 800 MG/8 ML IJ IVPB PRN (15:41)
[2022-09-06] MEDS: IBUPROFEN 800 MG/8 ML IJ IVPB PRN (16:08)
[2022-09-06 18:46] LABS: HEMATOCRIT 27.3 % (32.4-45.2); HEMOGLOBIN 8.9 GM/dL (10.7-15.3); MCH 27.5 pg (25.7-33.7); MCHC 32.6 g/dl (32.0-36.0); MEAN CELL VOLUME 84.3 fl (80-96); MEAN PLT VOLUME 7.1 fl (7.5-11.1); PLATELET COUNT 377 10^3/uL (134-434); RBC 3.23 M/mm3 (3.60-5.2); RDW 15.4 % (11.6-15.6); WHITE BLOOD COUNT 17.5 K/mm3 (4.0-10.0)
[2022-09-06 22:25] LABS: CHLORIDE 103 mmol/L (98-107); SODIUM 141 mmol/L (136-145)
[2022-09-06 22:27] LABS: CALCIUM 7.6 mg/dL (8.5-10.1)
[2022-09-06 22:28] LABS: BLOOD UREA NITROGEN 9.3 mg/dL (7-18); CO2 27 mmol/L (21-32); GLUCOSE,RANDOM 77 mg/dL (74-106)
[2022-09-06 22:31] LABS: CREATININE 0.6 mg/dL (0.55-1.3); SGOT/AST 22 U/L (15-37); SGPT/ALT 14 U/L (13-61)
[2022-09-06 22:32] LABS: TOT PROT 5.7 g/dl (6.4-8.2)
[2022-09-06 22:33] LABS: BILIRUBIN,TOTAL 0.6 mg/dL (0.2-1)
[2022-09-06 22:34] LABS: ALK PHOS 71 U/L (45-117)
[2022-09-06 22:36] LABS: ANION GAP 11 MMOL/L (8-16)
[2022-09-07] MEDS: KCL 10 MEQ IVPB 10 MEQ/100 ML INFUS.BAG IVPB SCH (00:33)
[2022-09-07] MEDS: IBUPROFEN 800 MG/8 ML IJ IVPB PRN ×3 (03:18→21:42)
[2022-09-07] MEDS: PIPERACILLIN/TAZOB 3.375 GM 3.375 GM in DEXTROSE 5%-WATER - 50 ML IVPB SCH ×3 (05:22→21:16)
[2022-09-07] MEDS: ACETAMINOPHEN 325 MG TABLET (FP) PO PRN ×2 (08:49→14:50)
[2022-09-07 08:54] LABS: BLOOD UREA NITROGEN 7.8 mg/dL (7-18)
[2022-09-07 08:55] LABS: ALBUMIN 2.3 g/dl (3.4-5.0)
[2022-09-07 08:57] LABS: BILIRUBIN,TOTAL 0.8 mg/dL (0.2-1); CALCIUM 8.2 mg/dL (8.5-10.1); TOT PROT 6.7 g/dl (6.4-8.2)
[2022-09-07 08:58] LABS: CREATININE 0.7 mg/dL (0.55-1.3)
[2022-09-07] MEDS ORDERED: POTASSIUM CHLORIDE ORAL LIQUID 20 MEQ/15 ML PO ONE (11:24)
[2022-09-07 12:43] LABS: BASO % 0.6 % (0-2.0); EOS % 0.5 % (0-4.5); HEMOGLOBIN 9.2 GM/dL (10.7-15.3); LYMPH % 11.6 % (8-40); MCH 29.1 pg (25.7-33.7); MCHC 34.2 g/dl (32.0-36.0); MEAN CELL VOLUME 85.1 fl (80-96); MEAN PLT VOLUME 7.3 fl (7.5-11.1); MONO % 5.7 % (3.8-10.2); NEUT % 81.6 % (42.8-82.8); PLATELET COUNT 457 10^3/uL (134-434); RBC 3.18 M/mm3 (3.60-5.2); RDW 15.2 % (11.6-15.6); WHITE BLOOD COUNT 15.7 K/mm3 (4.0-10.0)
[2022-09-07] MEDS: oxyCODONE HCL 5 MG TABLET PO PRN (15:02)
[2022-09-07] MEDS: ENOXAPARIN NA (PORCINE) 40 MG/0.4 ML DISP.SYRIN SQ SCH (16:38)
[2022-09-07 21:56] LABS: LACTIC ACID 3.4 mmol/L (0.4-2.0)
[2022-09-07] MEDS ORDERED: SODIUM CHLORIDE 1,000 ML IV STA (22:25)
[2022-09-08] MEDS: LACTATED RINGERS SOLUTION 1,000 ML IV SCH ×2 (00:06→19:58)
[2022-09-08] MEDS: oxyCODONE HCL 5 MG TABLET PO PRN (06:13)
[2022-09-08] MEDS: PIPERACILLIN/TAZOB 3.375 GM 3.375 GM in DEXTROSE 5%-WATER - 50 ML IVPB SCH ×3 (06:15→22:19)
[2022-09-08] MEDS: ACETAMINOPHEN 325 MG TABLET (FP) PO PRN (08:53)
[2022-09-08 09:40] LABS: BASO % 0.4 % (0-2.0); EOS % 0.6 % (0-4.5); HEMATOCRIT 28.4 % (32.4-45.2); HEMOGLOBIN 9.4 GM/dL (10.7-15.3); LYMPH % 10.2 % (8-40); MCH 28.6 pg (25.7-33.7); MCHC 33.2 g/dl (32.0-36.0); MEAN CELL VOLUME 86.3 fl (80-96); MEAN PLT VOLUME 7.6 fl (7.5-11.1); NEUT % 82.8 % (42.8-82.8); PLATELET COUNT 501 10^3/uL (134-434); RBC 3.29 M/mm3 (3.60-5.2); RDW 15.4 % (11.6-15.6); WHITE BLOOD COUNT 13.8 K/mm3 (4.0-10.0)
[2022-09-08 10:32] LABS: BLOOD UREA NITROGEN 5.3 mg/dL (7-18); CALCIUM 7.9 mg/dL (8.5-10.1)
[2022-09-08 10:33] LABS: CALCIUM 7.9 mg/dL (8.5-10.1)
[2022-09-08 10:35] LABS: CREATININE 0.6 mg/dL (0.55-1.3)
[2022-09-08 10:36] LABS: BILIRUBIN,TOTAL 0.9 mg/dL (0.2-1); TOT PROT 6.1 g/dl (6.4-8.2)
[2022-09-08 10:37] LABS: CREATININE 0.6 mg/dL (0.55-1.3)
[2022-09-08] MEDS: KCL 10 MEQ IVPB 10 MEQ/100 ML INFUS.BAG IVPB SCH ×3 (11:11→14:00)
[2022-09-08] MEDS: ENOXAPARIN NA (PORCINE) 40 MG/0.4 ML DISP.SYRIN SQ SCH (11:39)
[2022-09-09] MEDS: PIPERACILLIN/TAZOB 3.375 GM 3.375 GM in DEXTROSE 5%-WATER - 50 ML IVPB SCH ×3 (06:12→21:46)
[2022-09-09 07:41] LABS: BASO % 0.3 % (0-2.0); EOS % 0.6 % (0-4.5); HEMATOCRIT 29.6 % (32.4-45.2); HEMOGLOBIN 9.9 GM/dL (10.7-15.3); MCH 28.8 pg (25.7-33.7); MCHC 33.6 g/dl (32.0-36.0); MEAN CELL VOLUME 85.7 fl (80-96); MEAN PLT VOLUME 7.6 fl (7.5-11.1); MONO % 4.9 % (3.8-10.2); NEUT % 81.2 % (42.8-82.8); PLATELET COUNT 585 10^3/uL (134-434); RBC 3.46 M/mm3 (3.60-5.2); RDW 14.9 % (11.6-15.6); WHITE BLOOD COUNT 12.6 K/mm3 (4.0-10.0)
[2022-09-09 07:55] LABS: BLOOD UREA NITROGEN 3.6 mg/dL (7-18); CALCIUM 7.9 mg/dL (8.5-10.1); MAGNESIUM 1.6 mg/dL (1.8-2.4)
[2022-09-09 07:56] LABS: ALBUMIN 2.3 g/dl (3.4-5.0)
[2022-09-09 07:59] LABS: CREATININE 0.7 mg/dL (0.55-1.3)
[2022-09-09 08:00] LABS: BILIRUBIN,TOTAL 0.6 mg/dL (0.2-1); TOT PROT 6.7 g/dl (6.4-8.2)
[2022-09-09] MEDS ORDERED: MAGNESIUM 2GM/50ML STERILE WATER IVPB IVPB ONE (09:54)
[2022-09-09] MEDS: ENOXAPARIN NA (PORCINE) 40 MG/0.4 ML DISP.SYRIN SQ SCH (10:25)
[2022-09-09] MEDS: KCL 10 MEQ IVPB 10 MEQ/100 ML INFUS.BAG IVPB SCH ×3 (10:27→15:17)
[2022-09-09] MEDS: KETOROLAC TROMETHAMINE 30 MG/1 ML VIAL IVPUSH SCH ×2 (15:56→22:23)
[2022-09-10] MEDS: KETOROLAC TROMETHAMINE 30 MG/1 ML VIAL IVPUSH SCH ×4 (03:51→22:26)
[2022-09-10] MEDS: PIPERACILLIN/TAZOB 3.375 GM 3.375 GM in DEXTROSE 5%-WATER - 50 ML IVPB SCH ×3 (05:56→22:26)
[2022-09-10 08:19] LABS: BASO % 0.7 % (0-2.0); EOS % 0.5 % (0-4.5); HEMATOCRIT 29.4 % (32.4-45.2); HEMOGLOBIN 9.8 GM/dL (10.7-15.3); LYMPH % 12.1 % (8-40); MCH 28.4 pg (25.7-33.7); MCHC 33.5 g/dl (32.0-36.0); MEAN CELL VOLUME 84.9 fl (80-96); MEAN PLT VOLUME 7.8 fl (7.5-11.1); MONO % 5.6 % (3.8-10.2); NEUT % 81.1 % (42.8-82.8); PLATELET COUNT 566 10^3/uL (134-434); RBC 3.46 M/mm3 (3.60-5.2); RDW 15.4 % (11.6-15.6); WHITE BLOOD COUNT 10.8 K/mm3 (4.0-10.0)
[2022-09-10 08:55] LABS: ALBUMIN 2.4 g/dl (3.4-5.0); CALCIUM 8.8 mg/dL (8.5-10.1)
[2022-09-10 08:56] LABS: BLOOD UREA NITROGEN 3.8 mg/dL (7-18)
[2022-09-10 08:58] LABS: CREATININE 0.8 mg/dL (0.55-1.3)
[2022-09-10 09:00] LABS: BILIRUBIN,TOTAL 0.8 mg/dL (0.2-1); TOT PROT 6.9 g/dl (6.4-8.2)
[2022-09-10] MEDS: ENOXAPARIN NA (PORCINE) 40 MG/0.4 ML DISP.SYRIN SQ SCH (10:23)
[2022-09-10] MEDS: KCL 10 MEQ IVPB 10 MEQ/100 ML INFUS.BAG IVPB SCH ×4 (16:30→21:09)
[2022-09-10 17:39] VITALS: RESP 18
[2022-09-10] MEDS ORDERED: ACETAMINOPHEN 1000 MG/100 ML BAG IVPB PRN (20:34)
[2022-09-10] MEDS: LACTATED RINGERS SOLUTION 1,000 ML IV SCH ×2 (21:09→21:10)
[2022-09-11] MEDS: KETOROLAC TROMETHAMINE 30 MG/1 ML VIAL IVPUSH SCH ×5 (03:57→21:53)
[2022-09-11] MEDS: LACTATED RINGERS SOLUTION 1,000 ML IV SCH (05:39)
[2022-09-11] MEDS: PIPERACILLIN/TAZOB 3.375 GM 3.375 GM in DEXTROSE 5%-WATER - 50 ML IVPB SCH ×3 (05:39→21:53)
[2022-09-11 08:04] LABS: ALBUMIN 2.2 g/dl (3.4-5.0); CALCIUM 8.7 mg/dL (8.5-10.1)
[2022-09-11 08:08] LABS: CREATININE 0.7 mg/dL (0.55-1.3)
[2022-09-11 08:09] LABS: BILIRUBIN,TOTAL 0.7 mg/dL (0.2-1); TOT PROT 6.3 g/dl (6.4-8.2)
[2022-09-11 08:13] LABS: BASO % 0.4 % (0-2.0); EOS % 0.9 % (0-4.5); HEMATOCRIT 26.7 % (32.4-45.2); HEMOGLOBIN 8.8 GM/dL (10.7-15.3); LYMPH % 17.4 % (8-40); MCH 28.1 pg (25.7-33.7); MCHC 32.9 g/dl (32.0-36.0); MEAN CELL VOLUME 85.4 fl (80-96); MONO % 7.9 % (3.8-10.2); NEUT % 73.4 % (42.8-82.8); PLATELET COUNT 505 10^3/uL (134-434); RBC 3.12 M/mm3 (3.60-5.2); RDW 15.2 % (11.6-15.6); WHITE BLOOD COUNT 8.8 K/mm3 (4.0-10.0)
[2022-09-11 08:41] LABS: INR 1.36 (0.83-1.09); PROTHROMBIN TIME (PATIENT) 15.7 SEC (9.7-13.0)
[2022-09-11] MEDS: ENOXAPARIN NA (PORCINE) 40 MG/0.4 ML DISP.SYRIN SQ SCH (10:11)
[2022-09-11] MEDS: KCL 10 MEQ IVPB 10 MEQ/100 ML INFUS.BAG IVPB SCH ×4 (10:55→18:58)
[2022-09-11] MEDS ORDERED: BUPIVACAINE HCL/PF 0.25% (2.5MG/ML) 10 ML VIAL ONE (11:33)
[2022-09-12] MEDS: LACTATED RINGERS SOLUTION 1,000 ML IV SCH ×2 (02:39→02:41)
[2022-09-12] MEDS: KETOROLAC TROMETHAMINE 30 MG/1 ML VIAL IVPUSH SCH ×2 (02:41→09:06)
[2022-09-12] MEDS: PIPERACILLIN/TAZOB 3.375 GM 3.375 GM in DEXTROSE 5%-WATER - 50 ML IVPB SCH (05:59)
[2022-09-12] MEDS: ENOXAPARIN NA (PORCINE) 40 MG/0.4 ML DISP.SYRIN SQ SCH (09:12)
[2022-09-12 09:34] LABS: BASO % 0.8 % (0-2.0); EOS % 1.3 % (0-4.5); HEMATOCRIT 29.5 % (32.4-45.2); HEMOGLOBIN 9.8 GM/dL (10.7-15.3); LYMPH % 17.8 % (8-40); MCH 28.7 pg (25.7-33.7); MEAN PLT VOLUME 8.4 fl (7.5-11.1); MONO % 7.4 % (3.8-10.2); NEUT % 72.7 % (42.8-82.8); PLATELET COUNT 672 10^3/uL (134-434); RDW 15.4 % (11.6-15.6); WHITE BLOOD COUNT 9.1 K/mm3 (4.0-10.0)
[2022-09-12 09:41] LABS: INR 1.38 (0.83-1.09)
[2022-09-12 09:54] LABS: ALBUMIN 2.7 g/dl (3.4-5.0); BLOOD UREA NITROGEN 6.6 mg/dL (7-18); CALCIUM 9.1 mg/dL (8.5-10.1)
[2022-09-12 09:57] LABS: CREATININE 0.8 mg/dL (0.55-1.3)
[2022-09-12 09:59] LABS: BILIRUBIN,TOTAL 0.8 mg/dL (0.2-1); TOT PROT 7.5 g/dl (6.4-8.2)
[2022-09-12] MEDS ORDERED: LISINOPRIL 5 MG TABLET PO SCH (10:00)
[2022-09-12] MEDS ORDERED: AMOX TR/POT CLAV 875MG/125MG TABLETS (FP) PO ONE (10:00)
[2022-09-12 10:53] VITALS: BP 147/93; PULSE 93; TEMP 98
== END 2022-09-12 12:10 | disposition home or self-care (01) | DRG 337 ==
LOC: JER 14:40 → JASUSAT 16:11 → J3W 21:11 → JASUSAT 21:12
PROVIDERS: ADMIT Obstetrics & Gynecology; ATTEND Nurse Practitioner Family
PROC: 0D9W40Z Drainage of Peritoneum with Drainage Device, Percutaneous Endoscopic Approach (ICD-10-PCS; 2022-09-04)
PROC: 0DNW4ZZ Release Peritoneum, Percutaneous Endoscopic Approach (ICD-10-PCS; principal; 2022-09-04 17:00)
PROC: 0DNE4ZZ Release Large Intestine, Percutaneous Endoscopic Approach (ICD-10-PCS; 2022-09-06)
DX: N99.4 Postprocedural pelvic peritoneal adhesions (principal); N73.8 Other specified female pelvic inflammatory diseases; K66.0 Peritoneal adhesions (postprocedural) (postinfection); I10 Essential (primary) hypertension; Y83.8 Other surgical procedures as the cause of abnormal reaction of the patient, or of later complication, without mention of misadventure at the time of the procedure
CPT/HCPCS: 0241U-QW; 36415; 36511; 71045-TC-FY; 74176-TC; 74177-TC; 80048; 80053; 81003; 82550; 82553; 82803; 83605; 83735; 84100; 84484; 84703; 85025; 85027; 85610; 85730; 86140; 86850; 86900; 86901; 86922; 87040; 87086; 93005; 93010; 94760; 99285-25; J2175; P9038; P9058; Q9967

== ENCOUNTER 2023-04-19 04:51 | Day surgery (SDC) | payer OTHER ==
[2023-04-12 12:06] VITALS: BMI 25.2
[2023-04-19 10:50] VITALS: TEMP 97.8
[2023-04-19 11:26] VITALS: BP 127/83; PULSE 65; RESP 15
== END 2023-04-19 11:40 | disposition home or self-care (01) ==
LOC: JASU-ENDO 04:51
PROVIDERS: ATTEND Student in an Organized Health Care Education/Training Program
PROC: 0DBN8ZX Excision of Sigmoid Colon, Via Natural or Artificial Opening Endoscopic, Diagnostic (ICD-10-PCS; 2023-04-19)
PROC: 0DBP8ZX Excision of Rectum, Via Natural or Artificial Opening Endoscopic, Diagnostic (ICD-10-PCS; 2023-04-19)
PROC: 0DBM8ZX Excision of Descending Colon, Via Natural or Artificial Opening Endoscopic, Diagnostic (ICD-10-PCS; principal; 2023-04-19 10:15)
DX: Z12.11 Encounter for screening for malignant neoplasm of colon (principal); D12.8 Benign neoplasm of rectum; D12.4 Benign neoplasm of descending colon; D12.5 Benign neoplasm of sigmoid colon
CPT/HCPCS: 88305-TC